=== PATIENT | female | born 1985 | race Caucasian/White ===

== ENCOUNTER 2017-05-07 07:34 | Inpatient (IN) | payer OTHER ==
[~2017-05-07 07:34] MED LIST: NALBUPHINE HCL 10 MG/ML AMP (J2300) IV; NALOXONE INJ 0.4 MG/1 ML VIAL (J2310) IV
[2017-05-07] MEDS: BUPIVACAINE HCL 0.25% 10 ML VIAL SC (08:30)
[2017-05-07 08:59] LABS: HEMATOCRIT 30.6 % (36.0-47.0); HEMOGLOBIN 9.6 g/dl (12.0-16.0); MEAN CORPUSCULAR HEMOGLOBIN 24.1 pg (27.0-33.0); MEAN CORPUSCULAR HGB CONC 31.4 g/dl (32.0-36.5); MEAN CORPUSCULAR VOLUME 76.7 fl (80.0-96.0); PLATELET COUNT, AUTOMATED 172 10^3/uL (150-450); RED BLOOD COUNT 3.99 10^6/uL (4.00-5.40); RED CELL DISTRIBUTION WIDTH 15.9 % (11.5-14.5); WHITE BLOOD COUNT 8.1 10^3/uL (4.0-10.0)
[2017-05-07] MEDS: AZITHROMYCIN INJ 500 MG, VIAL MATE ADAPTER 1 EACH in D5W 250 ML IV (09:03)
[2017-05-07 09:22] LABS: AMPHETAMINES URINE REFLEX NEGATIVE (NEGATIVE); BARBITURATES URINE REFLEX NEGATIVE (NEGATIVE); BENZODIAZEPINES URINE REFLEX NEGATIVE (NEGATIVE); CANNABINOIDS URINE REFLEX NEGATIVE (NEGATIVE); COCAINE METABOLITE URINE REFLE NEGATIVE (NEGATIVE); METHADONE URINE REFLEX NEGATIVE (NEGATIVE); OPIATES URINE REFLEX NEGATIVE (NEGATIVE); PHENCYCLIDINE URINE REFLEX NEGATIVE (NEGATIVE)
[2017-05-07] MEDS: LACTATED RINGER'S 1000 ML IV (09:26)
[2017-05-07] MEDS: BICITRA 30ML SOLN UDC PO (09:56)
[2017-05-07] MEDS ORDERED: ONDANSETRON 4MG/2ML VIAL (J2405) As Ordered (10:34)
[2017-05-07] MEDS ORDERED: PHENYLephrine HCL 500 MCG/5 ML (100MCG/ML) SYRINGE (J2370) As Ordered ×2 (10:34→10:45)
[2017-05-07] MEDS ORDERED: ePHEDrine SULFATE 25 MG/5 ML(5MG/ML) SYRINGE As Ordered ×3 (10:34→11:07)
[2017-05-07] MEDS ORDERED: KETOROLAC 60 MG/2 ML VIAL (J1885) As Ordered (10:34)
[2017-05-07] MEDS: ACETAMINOPHEN 650 MG SUPP PR (10:34)
[2017-05-07] MEDS ORDERED: OXYTOCIN INJ 10 UNITS/ML VIAL (J2590) As Ordered ×4 (11:01)
[2017-05-07] MEDS ORDERED: MIDAZOLAM INJ 2 MG/2 ML VIAL (J2250) As Ordered (11:01)
[2017-05-07 11:24] LABS: CORD GAS ABE V -4.5; CORD GAS HCO3 V 22.9 MEQ/L; CORD GAS O2 SAT V 41.7 %; CORD GAS PCO2 V 50.7 mmHg; CORD GAS PH V 7.272 UNITS; CORD GAS PO2 V 20.3 mmHg; CORD GAS SBC V 19.5 MEQ/L; CORD GAS TCO2 V 24.4 MEQ/L
[2017-05-07 11:27] LABS: CORD GAS ABE A -7.6; CORD GAS HCO3 A 21.9 MEQ/L; CORD GAS O2 SAT A < 15.0 %; CORD GAS PCO2 A 61.9 mmHg; CORD GAS PH A 7.166 UNITS; CORD GAS PO2 A 11.4 mmHg; CORD GAS TCO2 A 23.8 MEQ/L
[2017-05-07] MEDS ORDERED: METHYLERGONOVINE MALEATE 0.2 MG TAB PO (11:45)
[2017-05-07] MEDS ORDERED: MOM 30ML SUSPENSION UDC PO (11:45)
[2017-05-07] MEDS ORDERED: MEASLES,MUMPS,RUBELLA VACCINE INJ (MMR-II) (90707) SC (11:45)
[2017-05-07] MEDS ORDERED: RHOGAM 300 MCG (1500 IU) INJ (J2790) IM (11:45)
[2017-05-07] MEDS ORDERED: ANUSOL HC CREAM 30GM TOP (11:45)
[2017-05-07] MEDS ORDERED: diphenhydrAMINE INJ 50MG/ML VIAL (J1200) IV (12:00)
[2017-05-07] MEDS ORDERED: ONDANSETRON 4MG/2ML VIAL (J2405) IV (12:00)
[2017-05-07] MEDS: PERCOCET 5MG/325MG TAB PO ×3 (12:25→20:04)
[2017-05-07] MEDS: fentaNYL 100 MCG/2 ML INJECTION (J3010) IV (12:48)
[2017-05-07] MEDS: LR 1,000 ML IV ×2 (13:35→16:52)
[2017-05-07] MEDS: METOCLOPRAMIDE INJ 10MG/2ML VIAL (J2765) IV (15:57)
[2017-05-07] MEDS: IBUPROFEN 800 MG TAB PO (18:18)
[2017-05-07] MEDS: ONDANSETRON 4MG/2ML VIAL (J2405) IV (20:03)
[2017-05-07] MEDS: DOCUSATE SODIUM 100 MG CAP PO (20:03)
[2017-05-08] MEDS: DOCUSATE SODIUM 100 MG CAP PO (00:05)
[2017-05-08] MEDS: PERCOCET 5MG/325MG TAB PO ×5 (00:06→19:40)
[2017-05-08] MEDS: LR 1,000 ML IV (00:19)
[2017-05-08] MEDS: IBUPROFEN 800 MG TAB PO ×3 (03:00→18:24)
[2017-05-08] MEDS: METOCLOPRAMIDE INJ 10MG/2ML VIAL (J2765) IV (06:39)
[2017-05-08 07:31] LABS: HEMATOCRIT 23.2 % (36.0-47.0); MEAN CORPUSCULAR HEMOGLOBIN 24.5 pg (27.0-33.0); MEAN CORPUSCULAR HGB CONC 31.9 g/dl (32.0-36.5); MEAN CORPUSCULAR VOLUME 76.8 fl (80.0-96.0); PLATELET COUNT, AUTOMATED 169 10^3/uL (150-450); RED BLOOD COUNT 3.02 10^6/uL (4.00-5.40); RED CELL DISTRIBUTION WIDTH 15.9 % (11.5-14.5); WHITE BLOOD COUNT 9.4 10^3/uL (4.0-10.0)
[2017-05-08 07:37] LABS: HEMOGLOBIN 7.4 g/dl (12.0-16.0)
[2017-05-08] MEDS: PRENATAL VITAMINS CHEWABLE TABLET PO (08:43)
[2017-05-09] MEDS: IBUPROFEN 800 MG TAB PO ×3 (02:00→17:48)
[2017-05-09 07:17] LABS: HEMOGLOBIN 7.7 g/dl (12.0-16.0); MEAN CORPUSCULAR HEMOGLOBIN 24.1 pg (27.0-33.0); MEAN CORPUSCULAR HGB CONC 30.8 g/dl (32.0-36.5); MEAN CORPUSCULAR VOLUME 78.4 fl (80.0-96.0); PLATELET COUNT, AUTOMATED 185 10^3/uL (150-450); RED BLOOD COUNT 3.19 10^6/uL (4.00-5.40); RED CELL DISTRIBUTION WIDTH 16.3 % (11.5-14.5)
[2017-05-09] MEDS: PRENATAL VITAMINS CHEWABLE TABLET PO (08:15)
== END 2017-05-09 19:00 | disposition home or self-care (01) | DRG 766 ==
LOC: M LDI 07:34 → M OBS 13:10
PROVIDERS: Obstetrics & Gynecology
PROC: 10D00Z1 Extraction of Products of Conception, Low, Open Approach (ICD-10-PCS; principal; 2017-05-07 09:30)
PROC: 0UL70CZ Occlusion of Bilateral Fallopian Tubes with Extraluminal Device, Open Approach (ICD-10-PCS; 2017-05-07 09:30)
DX: O34.211 Maternal care for low transverse scar from previous cesarean delivery (principal); Z37.0 Single live birth; O24.420 Gestational diabetes mellitus in childbirth, diet controlled; Z30.2 Encounter for sterilization; Z88.5 Allergy status to narcotic agent; R51 Headache; D25.9 Leiomyoma of uterus, unspecified; O34.13 Maternal care for benign tumor of corpus uteri, third trimester; Z3A.00 Weeks of gestation of pregnancy not specified